=== PATIENT | female | born 1975 | race Caucasian/White ===

== ENCOUNTER 2018-05-19 20:46 | Emergency (ER) | payer OTHER ==
[2018-05-19 21:23] VITALS: BP 126/63
--- NOTE | 2018-05-19 21:42 | UC ---
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 She states swimming for the first time in several years on 05/10/18. Denies any recent URI or fever." - History of Current Complaint Chief Complaint: UCEar Stated Complaint: LEFT EAR COMPLAINT Time Seen by Provider: 05/19/18 21:31 Hx Last Menstrual Period: 2001 Pain Intensity: 4 - Allergies/Home Medications Allergies/Adverse Reactions: Allergies Allergy/AdvReac Type Severity Reaction Status Date / Time ketorolac [From Toradol] Allergy Severe kidney Verified 05/19/18 21:41 failure hydromorphone [From Dilaudid] Allergy "turns Verified 05/19/18 21:43 bright red and almost passes out" morphine Allergy kidney Verified 05/19/18 21:43 failure NSAIDS (Non-Steroidal Allergy kidney Verified 05/19/18 21:43 Anti-Inflamma failure piperacillin [From Zosyn] Allergy kidney Verified 05/19/18 21:43 failure tazobactam [From Zosyn] Allergy kidney Verified 05/19/18 21:43 failure vancomycin Allergy kidney Verified 05/19/18 21:43 failure Home Medications: Home Medications Escitalopram Oxalate [Lexapro 20 mg] 20 mg PO DAILY 05/19/18 [History Confirmed 05/19/18] Magnesium Oxide [Magnesium] 400 mg PO DAILY 05/19/18 [History Confirmed 05/19/18 ] buPROPion SR TAB* [Wellbutrin SR TAB*] 150 mg PO BID 05/19/18 [History Confirmed 05/19/18] clonazePAM [Clonazepam] 0.25 mg PO TID 05/19/18 [History Confirmed 05/19/18] PMH/Surg Hx/FS Hx/Imm Hx Previously Healthy: Yes - Surgical History Surgical History: Yes Surgery Procedure, Year, and Place: bariatric surgery/sleeve 08/2013. tonsillectomy 1986. D&C 1999. and partial hysterectomy 2002. appendectomy 2007. L upper lobectomy d/t hamartoma. ureteroscopy with laser stone removal 2011 & 2013. 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 - Family History Known Family History: Positive: Other - father -- positive for diverticulitis - Social History Alcohol Use: Rare Alcohol Amount: none since she started meds Substance Use Type: Prescribed Substance Use Comment - Amount & Last Used: prescriptions meds Smoking Status (MU): Former Smoker Type: Cigarettes Amount Used/How Often: 1 ppd Length of Time of Smoking/Using Tobacco: 22 yrs When Did the Patient Quit Smoking/Using Tobacco: 2008 - Immunization History Most Recent Influenza Vaccination: none Review of Systems Constitutional: Negative Skin: Negative Eyes: Negative ENT: Ear Ache Respiratory: Negative Cardiovascular: Negative Gastrointestinal: Negative Genitourinary: Negative Motor: Negative Neurovascular: Negative Musculoskeletal: Negative Neurological: Negative Psychological: Negative Is Patient Immunocompromised?: No All Other Systems Reviewed And Are Negative: Yes Physical Exam Triage Information Reviewed: Yes Appearance: Well-Appearing, No Pain Distress, Well-Nourished Vital Signs: Initial Vital Signs Temp 97.3 F 05/19/18 21:05 Pulse 95 05/19/18 21:05 Resp 16 05/19/18 21:05 BP 126/63 05/19/18 21:05 Pulse Ox 99 05/19/18 21:05 Vital Signs Reviewed: Yes ENT Exam: Normal ENT: Positive: Hearing grossly normal, Pharynx normal, Other - right ear, canal and TM nml. left external ear -NT. canal w/ mild swelling in entire circumference. possible mild early exudate. + serous effusion. Respiratory Exam: Normal Respiratory: Positive: Lungs clear Cardiovascular Exam: Normal Cardiovascular: Positive: RRR Musculoskeletal Exam: Normal Neurological Exam: Normal Psychological Exam: Normal Skin Exam: Normal Ear Complaint Course/Dx - Course Course Of Treatment: mild early left external otitis, left serous otitis -. - rx ear gtts - prefers to belt picker in AM from pharmacy. -flonase NS. -seh is very agreeable w/ this plan - Differential Dx/Diagnosis Differential Diagnosis/HQI/PQRI: Otitis Externa, Otitis Media, URI Provider Diagnoses: left otitis externa, left serous otitis Discharge - Sign-Out/Discharge Documenting (check all that apply): Patient Departure - Discharge Plan Condition: Stable Disposition: HOME Prescriptions: Neomyc/Polym/HC 1% OTIC SUSP* [Cortisporin Otic Susp 1%*] 4 drop LEFT EAR TID # 1 btl Patient Education Materials: Otitis Externa (ED), Serous Otitis Media (ED) Referrals: Brittany Rodriguez MD [Primary Care Provider] - If Needed Additional Instructions: The flonase nasal spray will help the fluid in the ear. The drops will help the early outer ear infection. Follow up with your PCP if symptoms increase or persist. - Billing Disposition and Condition Condition: STABLE Disposition: Home
== END 2018-05-19 22:02 | disposition home or self-care (01) ==
LOC: UCCORT 20:46
DX: H60.92 Unspecified otitis externa, left ear (principal); H65.92 Unspecified nonsuppurative otitis media, left ear; Z88.0 Allergy status to penicillin; Z88.1 Allergy status to other antibiotic agents; Z88.5 Allergy status to narcotic agent; Z88.6 Allergy status to analgesic agent; Z87.891 Personal history of nicotine dependence
CPT/HCPCS: 99212; G0463

== ENCOUNTER 2018-06-01 14:37 | Emergency (ER) | payer OTHER ==
[2018-06-01 15:05] VITALS: BP 118/69
--- NOTE | 2018-06-01 15:14 | UC ---
Skin Complaint HPI - HPI Summary HPI Summary: Pt presents with c/o of worsening redness, tenderness and pruritis at site of known bee sting on left mid anterior forearm - History of Current Complaint Chief Complaint: UCSkin Time Seen by Provider: 06/01/18 15:03 Stated Complaint: LEFT ARM SKIN COMPLAINT Hx Obtained From: Patient Hx Last Menstrual Period: 2001 ?: No Onset/Duration: Gradual Onset, Lasting Days, Still Present, Worse Since - onset Skin Exposure Onset/Duration: Days Ago Onset Severity: Mild Current Severity: Mild Pain Intensity: 1 Character: Pruritus, Redness, Painful Aggravating Factor(s): Touch Alleviating Factor(s): Nothing Associated Signs & Symptoms: Positive: Tenderness Related History: Insect Bite/Sting - Allergy/Home Medications Allergies/Adverse Reactions: Allergies Allergy/AdvReac Type Severity Reaction Status Date / Time ketorolac [From Toradol] Allergy Severe kidney Verified 06/01/18 14:48 failure strawberry Allergy Unknown moth Verified 06/01/18 14:48 swells, sores on lips hydromorphone [From Dilaudid] Allergy "turns Verified 06/01/18 14:48 bright red and almost passes out" morphine Allergy kidney Verified 06/01/18 14:48 failure NSAIDS (Non-Steroidal Allergy kidney Verified 06/01/18 14:48 Anti-Inflamma failure piperacillin [From Zosyn] Allergy kidney Verified 06/01/18 14:48 failure tazobactam [From Zosyn] Allergy kidney Verified 06/01/18 14:48 failure vancomycin Allergy kidney Verified 06/01/18 14:48 failure Home Medications: Home Medications Betamethasone Meghana 0.1% ON(NF) [Betamethasone Meghana 0.1% OINT(NF)] 1 applic .SEE ORDER TID 06/01/18 [History Confirmed 06/01/18] Gabapentin CAP(*) [Neurontin 100 mg CAP(*)] 100 mg PO DAILY 06/01/18 [History Confirmed 06/01/18] tiZANidine TAB* [Zanaflex TAB*] 2 mg PO DAILY 06/01/18 [History Confirmed ] Review of Systems Constitutional: Negative Skin: Rash Eyes: Negative ENT: Negative Respiratory: Negative Cardiovascular: Negative Gastrointestinal: Negative Genitourinary: Negative Motor: Negative Neurovascular: Negative Musculoskeletal: Negative Neurological: Negative Psychological: Negative Is Patient Immunocompromised?: No All Other Systems Reviewed And Are Negative: Yes PMH/Surg Hx/FS Hx/Imm Hx Previously Healthy: Yes GI/ History: Gastroesophageal Reflux - Surgical History Surgical History: Yes Surgery Procedure, Year, and Place: bariatric surgery/sleeve 08/2013. tonsillectomy 1986. D&C 1999. and partial hysterectomy 2002. appendectomy 2007. L upper lobectomy d/t hamartoma. ureteroscopy with laser stone removal 2011 & 2013. 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 - Family History Known Family History: Positive: Cardiac Disease, Other - father -- positive for diverticulitis - Social History Occupation: Employed Full-time Lives: With Family Alcohol Use: None Alcohol Amount: none since she started meds Substance Use Type: Prescribed Substance Use Comment - Amount & Last Used: prescriptions meds Smoking Status (MU): Former Smoker Type: Cigarettes Amount Used/How Often: 1 ppd Length of Time of Smoking/Using Tobacco: 22 yrs Have You Smoked in the Last Year: Yes When Did the Patient Quit Smoking/Using Tobacco: 2008 - Immunization History Most Recent Influenza Vaccination: none Physical Exam Triage Information Reviewed: Yes Appearance: Well-Appearing Vital Signs: Initial Vital Signs Temp 97.7 F 06/01/18 14:53 Pulse 76 06/01/18 14:53 Resp 18 06/01/18 14:53 BP 118/69 06/01/18 14:53 Pulse Ox 97 06/01/18 14:53 Vital Signs Reviewed: Yes Eye Exam: Normal ENT: Positive: Hearing grossly normal Dental Exam: Normal Neck exam: Normal Respiratory: Positive: No respiratory distress Musculoskeletal Exam: Normal Neurological Exam: Normal Psychological Exam: Normal Skin Exam: Other - 3 cm diamater erythematous area, with two intact clear fluid filled blisters, small, mild warmth to area, pt/ c/o or tenderness during exam Course/Dx - Differential Diagnoses - Skin Complaint Differential Diagnoses: Cellulitis, Contact Dermatitis, Urticaria - Diagnoses Provider Diagnoses: cellulitis Discharge - Sign-Out/Discharge Documenting (check all that apply): Patient Departure All imaging exams completed and their final reports reviewed: No Studies - Discharge Plan Condition: Stable Disposition: HOME Prescriptions: Cetirizine* [ZyrTEC 10 MG TAB*] 10 mg PO DAILY #10 tab DOXYcycline CAP(*) [DOXYcycline 100MG CAP(*)] 100 mg PO Q12H #6 cap Patient Education Materials: Cellulitis (ED), Insect Bite or Sting (ED) Referrals: Brittany Rodriguez MD [Primary Care Provider] - If Needed - Billing Disposition and Condition Condition: STABLE Disposition: Home
== END 2018-06-01 16:07 | disposition home or self-care (01) ==
LOC: UCCORT 14:37
DX: L03.114 Cellulitis of left upper limb (principal); Z88.8 Allergy status to other drugs, medicaments and biological substances; Z88.5 Allergy status to narcotic agent; Z88.6 Allergy status to analgesic agent; Z88.0 Allergy status to penicillin; Z88.1 Allergy status to other antibiotic agents; Z87.891 Personal history of nicotine dependence
CPT/HCPCS: 99212; G0463